=== PATIENT | female | born 1980 | race Caucasian/White ===

== ENCOUNTER 2016-07-07 12:48 | Emergency (ER) | payer MEDICARE, OTHER ==
[~2016-07-07 12:48] MED LIST: ACET50TA OR; DOCU10ELUD OR; HYDROXYZINE HCL PO; IBUP80TA OR; PERCOCET PO; PRENTAB45 PO; SERT-138 PO; SERTRALINE OR; [UNRECOGNIZED DRUG - CODE] OR
[2016-07-07] MEDS ORDERED: ONDANSETRON 4 MG ORAL DISINTEGRATING TAB (S0181) As Ordered ONE (13:32)
[2016-07-07 13:54] LABS: BASO # 0.1 K/mm3 (0.0-0.2); BASO % 0.6 % (0.0-1.0); EOS # 0.4 K/mm3 (0.0-0.50); EOS % 3.4 % (0.0-3.0); LARGE UNSTAINED CELL # 0.2 K/mm3 (0.0-0.4); LARGE UNSTAINED CELL % 2.2 % (0.0-4.0); LYMPH # 2.8 K/mm3 (1.5-4.5); LYMPH % 25.8 % (24.0-44.0); MEAN CORPUSCULAR HEMOGLOBIN 32.9 pg (27.0-33.0); MEAN CORPUSCULAR HGB CONC 35.8 g/dl (32.0-36.5); MONO # 0.4 K/mm3 (0.0-0.8); MONO % 3.6 % (0.0-5.0); NEUTROPHILS % 64.4 % (36.0-66.0); PLATELET COUNT, AUTOMATED 275 k/mm3 (150-450); RED CELL DISTRIBUTION WIDTH 11.7 % (11.5-14.5); WHITE BLOOD COUNT 10.9 K/mm3 (4.0-10.0)
[2016-07-07 14:06] LABS: ALBUMIN 4.1 GM/DL (3.2-5.2); ALBUMIN/GLOBULIN RATIO 1.14 (1.00-1.93); ALKALINE PHOSPHATASE 87 U/L (45-117); ALT/SGPT 26 U/L (12-78); ANION GAP 7 MEQ/L (8-16); AST/SGOT 13 U/L (15-37); BILIRUBIN,DIRECT < 0.1 MG/DL (0.0-0.2); BILIRUBIN,TOTAL 0.3 MG/DL (0.2-1.0); BLOOD UREA NITROGEN 18 MG/DL (7-18); CALCIUM LEVEL 8.5 MG/DL (8.5-10.1); CARBON DIOXIDE LEVEL 25 MEQ/L (21-32); CHLORIDE LEVEL 109 MEQ/L (98-107); CREATININE FOR GFR 0.78 MG/DL (0.55-1.02); GLOMERULAR FILTRATION RATE > 60.0 (>60); GLUCOSE, FASTING 100 MG/DL (70-105); SODIUM LEVEL 141 MEQ/L (136-145); TOTAL PROTEIN 7.7 GM/DL (6.4-8.2)
[2016-07-07] MEDS ORDERED: ISOVUE-370 76% 100ML VIAL (Q9967) As Ordered ONE (15:11)
--- NOTE | 2016-07-07 16:38 | REP ---
Multiphasic CT abdomen and pelvis without IV contrast and during the renal cortical phase of enhancement and again later during the renal excretion phase of enhancement after IV contrast. There is no bowel contrast. Complex right renal cyst was identified by ultrasound earlier today. There is a complex right renal cyst by CT measuring 4.6 cm containing slightly thickened multiple septa and e a few mural calcifications. The findings are compatible with a Bosniak type 2 F renal cyst. 6-month CT follow-up or MRI is recommended. There are no other calcifications on the right on the left. There is no hydronephrosis. No perinephric stranding. The visualized lung liz are unremarkable. The hepatic parenchyma, gallbladder, pancreas and spleen are normal size, homogeneous and unremarkable on all phases of the study. The adrenals are unremarkable. The right kidney is unremarkable. The the abdominal aorta is unremarkable. The bowel and mesentery are unremarkable. Pelvis: The appendix is unremarkable. The uterus, adnexa and urinary bladder are unremarkable. There is no adenopathy or ascites. There are no lytic, blastic or destructive skeletal changes. Impression: Bosniak type 2 F right renal cyst. Follow-up CT/MRI is recommended in 6 months. Signed by Fco Rios MD 07/07/2016 04:29 P
--- NOTE | 2016-07-07 17:42 | EDDOCDS ---
Physician Documentation [facility] Name: Bhargavi Sierra Age: 36 yrs Sex: Female : 1980 Arrival Date: 07/07/2016 Time: 12:48 Bed I2 / M2 Private MD: Unknown Pcp Disposition: 07/07/16 17:15 Discharged to Home/Self Care. 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 - Condition is Stable. - Discharge Instructions: Renal Mass. - Prescriptions for Guthrie 5- 325 mg Oral Tablet - take 1 tablet by ORAL route every 6 hours As needed MDD: 4 tabs; 15 tablet. - Medication Reconciliation, Local Pharmacy Hours form. - Follow up: Emergency Department; When: As needed; Reason: Worsening of conditions. Follow up: Heriberto Chambers; When: Call to arrange an appointment; Reason: Wound/Symptom Recheck, Further diagnostic work-up, Recheck today's complaints, Continuance of care, To establish care. Follow up: Yue Aviles MD; When: Call to arrange an appointment; Reason: Wound/Symptom Recheck, Further diagnostic work-up, Recheck today's complaints, Continuance of care, To establish care. - Problem is new. - Symptoms are unchanged. - Notes: THE CT TODAY SHOWS A "BOSNIAK TYPE 2 F RIGHT RENAL CYST." YOUR PAIN IS MOST LIKELY COMING FROM THIS CYST, THERE IS NOT SIGNS OF INFECTION ELSWHERE ON YOUR LABS OR URINE. THE CYST IS 4.6CM TODAY. CALL THE SLOT SUPERVISOR AND UROLOGIST GROUPS ON YOUR DISCHARGE PAPERS AND LET THEM KNOW YOU WERE HERE AND TOLD YOU HAVE THIS CYST ON YOUR KIDNEY. ANY WORSENING SYMPTOMS OF PAIN, FEVER OR ANY OTHER CONCERNING SYMPTOMS, PLEASE RETURN TO THE ER. Historical: - Allergies: no known allergies; - Home Meds: 1. prednisone 5 mg Oral tab once daily 2. hydroxyzine HCl 25 mg oral tab as needed - PMHx: Lupus; PTSD; - PSHx: right knee surgery; Tonsillectomy; - Social history: Smoking status: Patient uses tobacco products, heavy tobacco smoker. No barriers to communication noted, The patient speaks fluent Thai, Speaks appropriately for age. - Family history: Not pertinent. - : The pt / caregiver states he / she is not on anticoagulants. Home medication list is obtained from the patient. - Exposure Risk Screening:: None identified. 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 7 in. (170.18 cm) (R); Pain 2/10; 14:59 BP 121 / 67; Pulse 72; Resp 16; Temp 98.7(TE); Pulse Ox 98% on R/A; Pain 5/10; sew 16:30 BP 121 / 73; Pulse 64; Resp 18; Temp 98.0; Pulse Ox 98% ; Pain 5/10; jam1 17:32 BP 129 / 72; Pulse 68; Resp 20; Temp 97.7; Pulse Ox 98% ; Pain 5/10; jam1 12:50 Body Mass Index 35.24 (102.06 kg, 170.18 cm) gr2 MDM: 13:14 Financial registration complete. lg 13:18 [facility] [place] Agreement was scanned into [employer] and attached to record. lg 13:19 UCG by Nursing ordered. ar2 13:29 Ondansetron ODT Oral Disintegrating Tablet 4 mg PO once ordered. ar2 13:29 CBC with Diff Ordered. EDMS 13:29 MED Profile Ordered. EDMS 13:29 Liver Profile Ordered. EDMS 13:29 UA Ordered. EDMS 13:29 Urine Culture Ordered. EDMS 13:30 Renal US Ordered. EDMS 14:08 CBC with Diff Reviewed. ar2 14:08 MED Profile Reviewed. ar2 14:08 Liver Profile Reviewed. ar2 14:08 UA Reviewed. ar2 15:03 IV Saline Lock ordered. ar2 15:03 NS 0.9% 1000 ml IV at bolus once ordered. ar2 15:04 CT ABD & PELVIS: W/O FOL BY WIT+CT Ordered. EDMS Point of Care Testing: Urine : 13:27 hCG Reading: Negative; Control Reading: Positive; pml Ranges: Administered Medications: 13:33 Drug: Ondansetron ODT 4 mg [ondansetron 4 mg disintegrating tablet (1 tabs)] Route: PO; kr3 15:48 Drug: NS 0.9% 1000 ml [sodium chloride 0.9 % intravenous solution] Route: IV; Rate: dls bolus; Site: left antecubital; Signatures: Dispatcher [employer] Alesha Burris RN RN dls Oksana Omer, Reg Reg lg Edd Lau PA-C PA-C ar2 Sonam Yañez RN RN pml Laura Mathews PA-C PA-C dt4 Adan Talavera RN RN jf3 Marisa Hdz RN kr3 The chart was reviewed and I authenticate all verbal orders and agree with the evaluation and treatment provided.Attachments: 13:18 [facility] Payment Agreement lg MTDD
--- NOTE | 2016-07-07 17:42 | EDDOCDS ---
Nurse's Notes [facility] Name: Bhargavi Sierra Age: 36 yrs Sex: Female : 1980 Arrival Date: 07/07/2016 Time: 12:48 Bed I2 / M2 Private MD: Unknown Pcp Diagnosis: Other abdominal pain-RIGHT FLANK PAIN;Congenital single renal cyst-BOSNIAK TYPE 2F RENAL CYST, RIGHT Presentation: 07/07 12:53 Presenting complaint: Patient states: right sided back pain for about a month - also pml report numbness in arms and legs and nausea and vomiting also ongoing for a month. states worse today. unable to tolerate PO. Acute neurological deficits are not present. Mechanism of Injury: No Mechanism of Injury. Adult Sepsis Screening: The patient does not have new or worsening altered mentation. Patient's respiratory rate is less than 22. Systolic blood pressure is greater than 100. Patient has a qSOFA score of 0- Negative Sepsis Screen. Suicide/Homicide risk assessment- the patient denies having any suicidal and/or homicidal ideations and does not present with any other emotional, behavioral or mental health complaints. Status: Patient is not a emergency service restorer or dependent. Transition of care: patient was not received from another setting of care. 12:53 Acuity: YO Level 3 pml 12:53 Method Of Arrival: Walkin/Carried/Asstd pml Triage Assessment: 12:55 General: Appears in no apparent distress, Behavior is appropriate for age, cooperative. pml Pain: Location: posterior aspect of right lateral abdomen Pain currently is 6 out of 10 on a pain scale. HIV screening NA for this visit Offered previously. Musculoskeletal: Circulation, motion, and sensation intact. 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 prednisone 5 mg Oral tab once daily 2. hydroxyzine HCl 25 mg oral tab as needed - PMHx: Lupus; PTSD; - PSHx: right knee surgery; Tonsillectomy; - Social history: Smoking status: Patient uses tobacco products, heavy tobacco smoker. No barriers to communication noted, The patient speaks fluent German, Speaks appropriately for age. - Family history: Not pertinent. - : The pt / caregiver states he / she is not on anticoagulants. Home medication list is obtained from the patient. - Exposure Risk Screening:: None identified. Screenin:14 Screening information is obtained from the patient. Primary language is German. Fall jam1 risk: No risks identified. Assistance ADL's: requires no assistance with activities of daily living. Abuse/DV Screen: The patient / caregiver reports he/she is: not in a situation that causes fear, pain or injury. Nutritional screening: No deficits noted. Exposure Risk Screening: None identified. Advance Directives: Currently, there is no health care proxy. There is no active DNR order. There is no living will. There is no Power of Timber Killer. Advance directive information has not previously been placed in an [facility] medical record. Further advance directive information is declined. home support is adequate. Assessment: 15:38 General: Appears in no apparent distress, comfortable, Behavior is cooperative. Pain: jf3 Location: right flank Pain currently is 6 out of 10 on a pain scale. Neurological: Level of Consciousness is awake, alert, Oriented to person, place, time, pt states intermittent numbness and tingling in all extremities depending on what she is doing. Cardiovascular: Capillary refill < 3 seconds Heart tones S1 S2 present Chest pain is denied. Respiratory: Airway is patent Respiratory effort is even, unlabored, Respiratory pattern is regular, symmetrical, Breath sounds with wheezes inspiratory in left posterior upper lobe and left posterior lower lobe Denies cough, shortness of breath. GI: Abdomen is non- distended Bowel sounds present X 4 quads. Abd is soft and non tender X 4 quads. Reports nausea, vomiting, since x1 week Denies diarrhea. Derm: Skin is pink, warm & dry. 15:49 General: Pt to CT via w/c and returned IV site remains patent and clear IV bolus dls infusing well.. 16:47 General: Appears in no apparent distress, comfortable, Behavior is cooperative, Pt jf3 sitting up in chair. Respirations easy and unlabored. IV fluids running. Will continue to monitor. Vital Signs: 12:50 BP 148 / 74; Pulse 87; Resp 18 S; Temp 98.8(O); Pulse Ox 98% on R/A; Weight 102.06 kg gr2 (R); Height 5 ft. 7 in. (170.18 cm) (R); Pain 2/10; 14:59 BP 121 / 67; Pulse 72; Resp 16; Temp 98.7(TE); Pulse Ox 98% on R/A; Pain 5/10; sew 16:30 BP 121 / 73; Pulse 64; Resp 18; Temp 98.0; Pulse Ox 98% ; Pain 5/10; jam1 17:32 BP 129 / 72; Pulse 68; Resp 20; Temp 97.7; Pulse Ox 98% ; Pain 5/10; jam1 12:50 Body Mass Index 35.24 (102.06 kg, 170.18 cm) gr2 Vitals: 12:50 Log In Time: July 07, 2016 at 12:50. gr2 ED Course: 12:50 Patient visited by Kar Stock. gr2 12:50 [facility] is Private Physician. gr2 12:50 Unknown Pcp is Private Physician. gr2 12:50 Patient moved to Waiting gr2 12:51 Patient visited by Kar Stock. gr2 12:51 Patient moved to Pre RCE gr2 12:54 Triage Initiated pml 12:55 Patient visited by Sonam Yañez RN. pml 12:56 Patient moved to Triage 3 pml 13:11 Edd Lau PA-C is PHCP. ar2 13:11 Miky Whitney MD is Attending Physician. ar2 13:11 Patient visited by Edd Lau PA-C. ar2 13:18 [facility] Payment Agreement was scanned into [employer] and attached to record. lg 13:40 Patient visited by Laila Lopez. sew 13:40 Patient moved to TR2 sew 13:40 Urine Culture Sent. sew 13:40 UA Sent. sew 13:40 Liver Profile Sent. sew 13:40 MED Profile Sent. sew 13:40 CBC with Diff Sent. sew 13:40 Labs drawn. (by ED staff). Sent per order to lab. Urine collected. Clean catch sew specimen. Urine specimen sent to lab. 14:55 Patient moved to PR1 / 25 pml 15:06 Patient moved to I2 / M2 jo3 15:14 Pt greeted and oriented to ED. Patient advised of names of staff involved in care, jam1 location of call plummer, wait times and NPO status. Patient has correct armband on for positive identification. Placed in gown. Bed in low position. Call light in reach. Side rails up X 1. Door closed. 15:23 Patient visited by Alesha Roberts RN. dls 15:38 The patient / caregiver is instructed regarding the plan of care and ED course. jf3 15:38 Inserted saline lock: 20 gauge in left antecubital area The patient tolerated the jf3 procedure well. No procedures done that require assistance. 15:41 Patient visited by Adan Talavera RN. jf3 16:27 PHCP role handed off by Edd Lau PA-C dt4 16:27 Laura Mathews PA-C is PHCP. dt4 16:48 Patient visited by Adan Talavera RN. jf3 16:49 CT ABD & PELVIS: W/O FOL BY WIT+CT Returned. EDMS 17:08 Patient visited by Kelley Villalta PCA. jam1 17:14 Heriberto Chambers is Referral Physician. dt4 17:14 Yue Aviles MD is Referral Physician. dt4 17:40 Discontinued IV lock intact, bleeding controlled, pressure dressing applied, No dls redness/swelling at site. Administered Medications: 13:33 Drug: Ondansetron ODT 4 mg [ondansetron 4 mg disintegrating tablet (1 tabs)] Route: PO; kr3 15:48 Drug: NS 0.9% 1000 ml [sodium chloride 0.9 % intravenous solution] Route: IV; Rate: dls bolus; Site: left antecubital; Point of Care Testing: Urine : 13:27 hCG Reading: Negative; Control Reading: Positive; pml Ranges: Order Results: Lab Order: CBC with Diff; SPEC'M 07/07/16 13:39 Test: WHITE BLOOD COUNT; Value: 10.9; Range: 4.0-10.0; Abnormal: Above high normal; Units: K/mm3; Status: F Test: RED BLOOD COUNT; Value: 4.53; Range: 4.00-5.40; Units: M/mm3; Status: F Test: HEMOGLOBIN; Value: 14.9; Range: 12.0-16.0; Units: g/dl; Status: F Test: HEMATOCRIT; Value: 41.7; Range: 36.0-47.0; Units: %; Status: F Test: MEAN CORPUSCULAR VOLUME; Value: 92.0; Range: 80.0-96.0; Units: fl; Status: F Test: MEAN CORPUSCULAR HEMOGLOBIN; Value: 32.9; Range: 27.0-33.0; Units: pg; Status: F Test: MEAN CORPUSCULAR HGB CONC; Value: 35.8; Range: 32.0-36.5; Units: g/dl; Status: F Test: RED CELL DISTRIBUTION WIDTH; Value: 11.7; Range: 11.5-14.5; Units: %; Status: F Test: PLATELET COUNT, AUTOMATED; Value: 275; Range: 150-450; Units: k/mm3; Status: F Test: NEUTROPHILS %; Value: 64.4; Range: 36.0-66.0; Units: %; Status: F Test: LYMPH %; Value: 25.8; Range: 24.0-44.0; Units: %; Status: F Test: MONO %; Value: 3.6; Range: 0.0-5.0; Units: %; Status: F Test: EOS %; Value: 3.4; Range: 0.0-3.0; Abnormal: Above high normal; Units: %; Status: F Test: BASO %; Value: 0.6; Range: 0.0-1.0; Units: %; Status: F Test: LARGE UNSTAINED CELL %; Value: 2.2; Range: 0.0-4.0; Units: %; Status: F Test: NEUTROPHILS #; Value: 7.0; Range: 1.8-7.7; Units: K/mm3; Status: F Test: LYMPH #; Value: 2.8; Range: 1.5-4.5; Units: K/mm3; Status: F Test: MONO #; Value: 0.4; Range: 0.0-0.8; Units: K/mm3; Status: F Test: EOS #; Value: 0.4; Range: 0.0-0.50; Units: K/mm3; Status: F Test: BASO #; Value: 0.1; Range: 0.0-0.2; Units: K/mm3; Status: F Test: LARGE UNSTAINED CELL #; Value: 0.2; Range: 0.0-0.4; Units: K/mm3; Status: F Lab Order: MED Profile; SPEC'M 07/07/16 13:39 Test: GLUCOSE, FASTING; Value: 100; Range: 70-105; Units: MG/DL; Status: F Test: BLOOD UREA NITROGEN; Value: 18; Range: 7-18; Units: MG/DL; Status: F Test: CREATININE FOR GFR; Value: 0.78; Range: 0.55-1.02; Units: MG/DL; Status: F Test: GLOMERULAR FILTRATION RATE; Value: > 60.0; Range: >60; Status: F Test: SODIUM LEVEL; Value: 141; Range: 136-145; Units: MEQ/L; Status: F Test: POTASSIUM SERUM; Value: 4.0; Range: 3.5-5.1; Units: MEQ/L; Status: F Test: CHLORIDE LEVEL; Value: 109; Range: 98-107; Abnormal: Above high normal; Units: MEQ/L; Status: F Test: CARBON DIOXIDE LEVEL; Value: 25; Range: 21-32; Units: MEQ/L; Status: F Test: ANION GAP; Value: 7; Range: 8-16; Abnormal: Below low normal; Units: MEQ/L; Status: F Test: CALCIUM LEVEL; Value: 8.5; Range: 8.5-10.1; Units: MG/DL; Status: F Test Note: ; Units are mL/min/1.73 m2 Chronic Kidney Disease Staging per NKF: Stage I & II GFR >=60 Normal to Mildly Decreased Stage III GFR 30-59 Moderately Decreased Stage IV GFR 15-29 Severely Decreased Stage V GFR <15 Very Little GFR Left ESRD GFR <15 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 Lab Order: Liver Profile; SPEC'M 07/07/16 13:39 Test: AST/SGOT; Value: 13; Range: 15-37; Abnormal: Below low normal; Units: U/L; Status: F Test: ALT/SGPT; Value: 26; Range: 12-78; Units: U/L; Status: F Test: ALKALINE PHOSPHATASE; Value: 87; Range: 45-117; Units: U/L; Status: F Test: BILIRUBIN,TOTAL; Value: 0.3; Range: 0.2-1.0; Units: MG/DL; Status: F Test: BILIRUBIN,DIRECT; Value: < 0.1; Range: 0.0-0.2; Units: MG/DL; Status: F Test: TOTAL PROTEIN; Value: 7.7; Range: 6.4-8.2; Units: GM/DL; Status: F Test: ALBUMIN; Value: 4.1; Range: 3.2-5.2; Units: GM/DL; Status: F Test: ALBUMIN/GLOBULIN RATIO; Value: 1.14; Range: 1.00-1.93; Status: F Lab Order: UA; SPEC'M 07/07/16 13:39 Test: APPEARANCE, URINE; Value: CLEAR; Range: CLEAR; Status: F Test: COLOR, URINE; Value: YELLOW; Range: YELLOW; Status: F Test: PH,URINE; Value: 6.0; Range: 5.0-9.0; Units: UNITS; Status: F Test: SPECIFIC GRAVITY URINE AUTO; Value: 1.018; Range: 1.002-1.035; Status: F Test: PROTEIN, URINE AUTO; Value: NEGATIVE; Range: NEGATIVE; Units: mg/dL; Status: F Test: GLUCOSE, URINE (UA) AUTO; Value: NEGATIVE; Range: NEGATIVE; Units: mg/dL; Status: F Test: KETONE, URINE AUTO; Value: NEGATIVE; Range: NEGATIVE; Units: mg/dL; Status: F Test: UROBILINOGEN, URINE AUTO; Value: 0.2; Range: 0.0-2.0; Units: mg/dL; Status: F Test: BILIRUBIN, URINE AUTO; Value: NEGATIVE; Range: NEGATIVE; Status: F Test: NITRITE, URINE AUTO; Value: NEGATIVE; Range: NEGATIVE; Status: F Test: LEUKOCYTE ESTERASE, URINE AUTO; Value: NEGATIVE; Range: NEGATIVE; Status: F Test: BLOOD, URINE BLOOD; Value: NEGATIVE; Range: NEGATIVE; Status: F Test: WBC, URINE AUTO; Value: 1; Range: 0-3; Units: /HPF; Status: F Test: RBC, URINE AUTO; Value: 9; Range: 0-3; Abnormal: Above high normal; Units: /HPF; Status: F Test: BACTERIA, URINE AUTO; Value: NEGATIVE; Range: NEGATIVE; Status: F Test: SQUAMOUS EPITHELIAL CELL UR AU; Value: 1; Range: 0-6; Units: /HPF; Status: F Test: MUCUS, URINE; Value: SMALL; Range: NEGATIVE; Status: F Test: HYALINE CAST, URINE AUTO; Value: 0; Range: 0-1; Units: /LPF; Status: F Radiology Order: CT ABD & PELVIS: W/O FOL BY WIT+CT Test: CT ABD & PELVIS: W/O FOL BY WIT+CT REASON FOR EXAMINATION: hematuria protochol for right renal mass; Multiphasic CT abdomen and pelvis without IV contrast and during the renal; cortical phase of enhancement and again later during the renal excretion phase of; enhancement after IV contrast. There is no bowel contrast.; ; Complex right renal cyst was identified by ultrasound earlier today.; ; There is a complex right renal cyst by CT measuring 4.6 cm containing slightly; thickened multiple septa and e a few mural calcifications. The findings are; compatible with a Bosniak type 2 F renal cyst. 6-month CT follow-up or MRI is; recommended.; ; There are no other calcifications on the right on the left. There is no; hydronephrosis. No perinephric stranding.; ; The visualized lung liz are unremarkable.; ; The hepatic parenchyma, gallbladder, pancreas and spleen are normal size,; homogeneous and unremarkable on all phases of the study.; ; The adrenals are unremarkable. The right kidney is unremarkable. The the; abdominal aorta is unremarkable.; ; The bowel and mesentery are unremarkable.; ; Pelvis:; ; The appendix is unremarkable. The uterus, adnexa and urinary bladder are; unremarkable. There is no adenopathy or ascites.; ; There are no lytic, blastic or destructive skeletal changes.; ; Impression:; ; Bosniak type 2 F right renal cyst. Follow-up CT/MRI is recommended in 6 months.; ; ; Signed by; Fco Rios MD 07/07/2016 04:29 P; Outcome: 17:15 Discharge ordered by Provider. dt4 17:40 Discharge Assessment: Patient awake, alert and oriented x 3. No cognitive and/or dls functional deficits noted. Patient verbalized understanding of disposition instructions. patient administered narcotics - no. The following High Risk Discharge criteria are identified: None. Discharged to home ambulatory. Condition: stable. Discharge instructions given to patient, Instructed on discharge instructions, follow up and referral plans. medication usage, Demonstrated understanding of instructions, medications, Pt was receptive of discharge instructions/ teaching. Prescriptions given X 1. CT Study completed. Property sent home with patient. 17:41 Patient left the ED. dls Signatures: Dispatcher [facility] EDLA Alesha Roberts, RN RN dls Villalta, Kelley, COST CLERK COST CLERK jam1 Oksana Omer, Reg Reg lg Marisa Hdz,RN RN kr3 Aliyah Hernández RN RN jo3 Edd Lau, PA-C PA-C ar2 Sonam Yañez RN RN pml John, Kar Clark2 Laura Mathews, PA-C PA-C dt4 Adan Talavera RN RN jf3 MTDD
--- NOTE | 2016-07-07 20:43 | REP ---
Renal ultrasound 07/07/2016 Indication right flank pain for 1 month Comparison: Renal ultrasound 02/15/2014, abdominal ultrasound 11/30/2015 Findings: Study performed with jules scale and color Doppler ultrasound imaging. Findings: The right kidney measures 13.3 x 4.3 x 6.3 cm. Left kidney measures 12.3 x 5.1 x 6.4 cm. In the lateral mid pole right renal cortex is a 4.6 x 3.6 x 4.3 cm exophytic heterogeneous, hypoechoic mass versus complex cyst with some internal septations which are hyperechoic. This mass previously measured 3.1 2.7 x 3.5 cm diameter on 02/15/2014. There is no hydronephrosis. Cortical echogenicity is within normal limits Bladder is limited in visualization as it is contracted Impression kidneys without hydronephrosis bilaterally. Complex cystic mass noted in the lateral mid pole right kidney . Recommend CT of the abdomen and pelvis with and without IV contrast (hematuria protocol) Signed by Elsie Webber MD 07/07/2016 08:35 P
--- NOTE | 2016-07-09 18:42 | EDDOCDS ---
Physician Documentation [facility] Name: Bhargavi Sierra Age: 36 yrs Sex: Female : 1980 Arrival Date: 07/07/2016 Time: 12:48 Bed I2 / M2 Private MD: Unknown Pcp Disposition: 07/07/16 17:15 Discharged to Home/Self Care. 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 - Condition is Stable. - Discharge Instructions: Renal Mass. - Prescriptions for Pelion 5- 325 mg Oral Tablet - take 1 tablet by ORAL route every 6 hours As needed MDD: 4 tabs; 15 tablet. - Medication Reconciliation, Local Pharmacy Hours form. - Follow up: Emergency Department; When: As needed; Reason: Worsening of conditions. Follow up: Heriberto Chambers; When: Call to arrange an appointment; Reason: Wound/Symptom Recheck, Further diagnostic work-up, Recheck today's complaints, Continuance of care, To establish care. Follow up: Yue Aviles MD; When: Call to arrange an appointment; Reason: Wound/Symptom Recheck, Further diagnostic work-up, Recheck today's complaints, Continuance of care, To establish care. - Problem is new. - Symptoms are unchanged. - Notes: THE CT TODAY SHOWS A "BOSNIAK TYPE 2 F RIGHT RENAL CYST." YOUR PAIN IS MOST LIKELY COMING FROM THIS CYST, THERE IS NOT SIGNS OF INFECTION ELSWHERE ON YOUR LABS OR URINE. THE CYST IS 4.6CM TODAY. CALL THE LOGISTICS LEAD AND UROLOGIST GROUPS ON YOUR DISCHARGE PAPERS AND LET THEM KNOW YOU WERE HERE AND TOLD YOU HAVE THIS CYST ON YOUR KIDNEY. ANY WORSENING SYMPTOMS OF PAIN, FEVER OR ANY OTHER CONCERNING SYMPTOMS, PLEASE RETURN TO THE ER. Historical: - Allergies: no known allergies; - Home Meds: 1. prednisone 5 mg Oral tab once daily 2. hydroxyzine HCl 25 mg oral tab as needed - PMHx: Lupus; PTSD; - PSHx: right knee surgery; Tonsillectomy; - Social history: Smoking status: Patient uses tobacco products, heavy tobacco smoker. No barriers to communication noted, The patient speaks fluent Togolese, Speaks appropriately for age. - Family history: Not pertinent. - : The pt / caregiver states he / she is not on anticoagulants. Home medication list is obtained from the patient. - Exposure Risk Screening:: None identified. 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 7 in. (170.18 cm) (R); Pain 2/10; 14:59 BP 121 / 67; Pulse 72; Resp 16; Temp 98.7(TE); Pulse Ox 98% on R/A; Pain 5/10; sew 16:30 BP 121 / 73; Pulse 64; Resp 18; Temp 98.0; Pulse Ox 98% ; Pain 5/10; jam1 17:32 BP 129 / 72; Pulse 68; Resp 20; Temp 97.7; Pulse Ox 98% ; Pain 5/10; jam1 12:50 Body Mass Index 35.24 (102.06 kg, 170.18 cm) gr2 MDM: 13:14 Financial registration complete. lg 13:18 [facility] Payment Agreement was scanned into [employer] and attached to record. lg 13:19 UCG by Nursing ordered. ar2 13:29 Ondansetron ODT Oral Disintegrating Tablet 4 mg PO once ordered. ar2 13:29 CBC with Diff Ordered. EDMS 13:29 MED Profile Ordered. EDMS 13:29 Liver Profile Ordered. EDMS 13:29 UA Ordered. EDMS 13:29 Urine Culture Ordered. EDMS 13:30 Renal US Ordered. EDMS 14:08 CBC with Diff Reviewed. ar2 14:08 MED Profile Reviewed. ar2 14:08 Liver Profile Reviewed. ar2 14:08 UA Reviewed. ar2 15:03 IV Saline Lock ordered. ar2 15:03 NS 0.9% 1000 ml IV at bolus once ordered. ar2 15:04 CT ABD & PELVIS: W/O FOL BY WIT+CT Ordered. EDMS 07/08 11:23 T-Sheet-- Draft Copy was scanned into [employer] and attached to record. gb 11: Radiology Report was scanned into [employer] and attached to record. gb Point of Care Testing: Urine : 07/07 13:27 hCG Reading: Negative; Control Reading: Positive; pml Ranges: Administered Medications: 13:33 Drug: Ondansetron ODT 4 mg [ondansetron 4 mg disintegrating tablet (1 tabs)] Route: PO; kr3 15:48 Drug: NS 0.9% 1000 ml [sodium chloride 0.9 % intravenous solution] Route: IV; Rate: dls bolus; Site: left antecubital; Signatures: Dispatcher [employer] EDAlesha Berry RN RN dls Cat Burgos, Reg Reg gb Oksana Omer, Reg Reg lg Edd Lau PA-C PABaljeet ar2 Sonam Yañez RN RN pml Laura Mathews PABaljeet PABaljeet dt4 Adan Talavera RN RN jf3 Marisa Hdz RN kr3 The chart was reviewed and I authenticate all verbal orders and agree with the evaluation and treatment provided.Attachments: 13:18 [facility] Payment Agreement lg 07/08 11:23 T-Sheet-- Draft Copy gb Chart Complete MTDD
--- NOTE | 2016-07-09 18:42 | EDDOCDS ---
Nurse's Notes [facility] Name: Bhargavi Sierra Age: 36 yrs Sex: Female : 1980 Arrival Date: 07/07/2016 Time: 12:48 Bed I2 / M2 Private MD: Unknown Pcp Diagnosis: Other abdominal pain-RIGHT FLANK PAIN;Congenital single renal cyst-BOSNIAK TYPE 2F RENAL CYST, RIGHT Presentation: 07/07 12:53 Presenting complaint: Patient states: right sided back pain for about a month - also pml report numbness in arms and legs and nausea and vomiting also ongoing for a month. states worse today. unable to tolerate PO. Acute neurological deficits are not present. Mechanism of Injury: No Mechanism of Injury. Adult Sepsis Screening: The patient does not have new or worsening altered mentation. Patient's respiratory rate is less than 22. Systolic blood pressure is greater than 100. Patient has a qSOFA score of 0- Negative Sepsis Screen. Suicide/Homicide risk assessment- the patient denies having any suicidal and/or homicidal ideations and does not present with any other emotional, behavioral or mental health complaints. Status: Patient is not a patient service coordinator or dependent. Transition of care: patient was not received from another setting of care. 12:53 Acuity: YO Level 3 pml 12:53 Method Of Arrival: Walkin/Carried/Asstd pml Triage Assessment: 12:55 General: Appears in no apparent distress, Behavior is appropriate for age, cooperative. pml Pain: Location: posterior aspect of right lateral abdomen Pain currently is 6 out of 10 on a pain scale. HIV screening NA for this visit Offered previously. Musculoskeletal: Circulation, motion, and sensation intact. 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 prednisone 5 mg Oral tab once daily 2. hydroxyzine HCl 25 mg oral tab as needed - PMHx: Lupus; PTSD; - PSHx: right knee surgery; Tonsillectomy; - Social history: Smoking status: Patient uses tobacco products, heavy tobacco smoker. No barriers to communication noted, The patient speaks fluent Frisian, Speaks appropriately for age. - Family history: Not pertinent. - : The pt / caregiver states he / she is not on anticoagulants. Home medication list is obtained from the patient. - Exposure Risk Screening:: None identified. Screenin:14 Screening information is obtained from the patient. Primary language is Frisian. Fall jam1 risk: No risks identified. Assistance ADL's: requires no assistance with activities of daily living. Abuse/DV Screen: The patient / caregiver reports he/she is: not in a situation that causes fear, pain or injury. Nutritional screening: No deficits noted. Exposure Risk Screening: None identified. Advance Directives: Currently, there is no health care proxy. There is no active DNR order. There is no living will. There is no Power of Environmental Studies Department Chair. Advance directive information has not previously been placed in an [facility] medical record. Further advance directive information is declined. home support is adequate. Assessment: 15:38 General: Appears in no apparent distress, comfortable, Behavior is cooperative. Pain: jf3 Location: right flank Pain currently is 6 out of 10 on a pain scale. Neurological: Level of Consciousness is awake, alert, Oriented to person, place, time, pt states intermittent numbness and tingling in all extremities depending on what she is doing. Cardiovascular: Capillary refill < 3 seconds Heart tones S1 S2 present Chest pain is denied. Respiratory: Airway is patent Respiratory effort is even, unlabored, Respiratory pattern is regular, symmetrical, Breath sounds with wheezes inspiratory in left posterior upper lobe and left posterior lower lobe Denies cough, shortness of breath. GI: Abdomen is non- distended Bowel sounds present X 4 quads. Abd is soft and non tender X 4 quads. Reports nausea, vomiting, since x1 week Denies diarrhea. Derm: Skin is pink, warm & dry. 15:49 General: Pt to CT via w/c and returned IV site remains patent and clear IV bolus dls infusing well.. 16:47 General: Appears in no apparent distress, comfortable, Behavior is cooperative, Pt jf3 sitting up in chair. Respirations easy and unlabored. IV fluids running. Will continue to monitor. Vital Signs: 12:50 BP 148 / 74; Pulse 87; Resp 18 S; Temp 98.8(O); Pulse Ox 98% on R/A; Weight 102.06 kg gr2 (R); Height 5 ft. 7 in. (170.18 cm) (R); Pain 2/10; 14:59 BP 121 / 67; Pulse 72; Resp 16; Temp 98.7(TE); Pulse Ox 98% on R/A; Pain 5/10; sew 16:30 BP 121 / 73; Pulse 64; Resp 18; Temp 98.0; Pulse Ox 98% ; Pain 5/10; jam1 17:32 BP 129 / 72; Pulse 68; Resp 20; Temp 97.7; Pulse Ox 98% ; Pain 5/10; jam1 12:50 Body Mass Index 35.24 (102.06 kg, 170.18 cm) gr2 Vitals: 12:50 Log In Time: July 07, 2016 at 12:50. gr2 ED Course: 12:50 Patient visited by Kar Stock. gr2 12:50 [place] [place] Physician. gr2 12:50 Unknown Pcp is Private Physician. gr2 12:50 Patient moved to Waiting gr2 12:51 Patient visited by Kar Stock. gr2 12:51 Patient moved to Pre RCE gr2 12:54 Triage Initiated pml 12:55 Patient visited by Sonam Yañez RN. pml 12:56 Patient moved to Triage 3 pml 13:11 Edd Lau PA-C is PHCP. ar2 13:11 Miky Whitney MD is Attending Physician. ar2 13:11 Patient visited by Edd Lau PA-C. ar2 13:18 [facility] Payment Agreement was scanned into [employer]™ and attached to record. lg 13:40 Patient visited by Laila Lopez. sew 13:40 Patient moved to TR2 sew 13:40 Urine Culture Sent. sew 13:40 UA Sent. sew 13:40 Liver Profile Sent. sew 13:40 MED Profile Sent. sew 13:40 CBC with Diff Sent. sew 13:40 Labs drawn. (by ED staff). Sent per order to lab. Urine collected. Clean catch sew specimen. Urine specimen sent to lab. 14:55 Patient moved to PR1 / 25 pml 15:06 Patient moved to I2 / M2 jo3 15:14 Pt greeted and oriented to ED. Patient advised of names of staff involved in care, jam1 location of call plummer, wait times and NPO status. Patient has correct armband on for positive identification. Placed in gown. Bed in low position. Call light in reach. Side rails up X 1. Door closed. 15:23 Patient visited by Alesha Roberts RN. dls 15:38 The patient / caregiver is instructed regarding the plan of care and ED course. jf3 15:38 Inserted saline lock: 20 gauge in left antecubital area The patient tolerated the jf3 procedure well. No procedures done that require assistance. 15:41 Patient visited by Adan Talavera RN. jf3 16:27 PHCP role handed off by Edd Lau PA-C dt4 16:27 Laura Mathews PA-C is PHCP. dt4 16:48 Patient visited by Adan Talavera RN. jf3 16:49 CT ABD & PELVIS: W/O FOL BY WIT+CT Returned. EDMS 17:08 Patient visited by Kelley Villalta, RADHA. jam1 17:14 Heriberto Chambers is Referral Physician. dt4 17:14 Yue Aviles MD is Referral Physician. dt4 17:40 Discontinued IV lock intact, bleeding controlled, pressure dressing applied, No dls redness/swelling at site. 20:58 Renal US Returned. EDMS 07/08 11:23 T-Sheet-- Draft Copy was scanned into [employer]™ and attached to record. gb 11:23 Radiology Report was scanned into [employer]™ and attached to record. gb Administered Medications: 07/07 13:33 Drug: Ondansetron ODT 4 mg [ondansetron 4 mg disintegrating tablet (1 tabs)] Route: PO; kr3 15:48 Drug: NS 0.9% 1000 ml [sodium chloride 0.9 % intravenous solution] Route: IV; Rate: dls bolus; Site: left antecubital; Point of Care Testing: Urine : 13:27 hCG Reading: Negative; Control Reading: Positive; pml Ranges: Order Results: Lab Order: CBC with Diff; SPEC'M 07/07/16 13:39 Test: WHITE BLOOD COUNT; Value: 10.9; Range: 4.0-10.0; Abnormal: Above high normal; Units: K/mm3; Status: F Test: RED BLOOD COUNT; Value: 4.53; Range: 4.00-5.40; Units: M/mm3; Status: F Test: HEMOGLOBIN; Value: 14.9; Range: 12.0-16.0; Units: g/dl; Status: F Test: HEMATOCRIT; Value: 41.7; Range: 36.0-47.0; Units: %; Status: F Test: MEAN CORPUSCULAR VOLUME; Value: 92.0; Range: 80.0-96.0; Units: fl; Status: F Test: MEAN CORPUSCULAR HEMOGLOBIN; Value: 32.9; Range: 27.0-33.0; Units: pg; Status: F Test: MEAN CORPUSCULAR HGB CONC; Value: 35.8; Range: 32.0-36.5; Units: g/dl; Status: F Test: RED CELL DISTRIBUTION WIDTH; Value: 11.7; Range: 11.5-14.5; Units: %; Status: F Test: PLATELET COUNT, AUTOMATED; Value: 275; Range: 150-450; Units: k/mm3; Status: F Test: NEUTROPHILS %; Value: 64.4; Range: 36.0-66.0; Units: %; Status: F Test: LYMPH %; Value: 25.8; Range: 24.0-44.0; Units: %; Status: F Test: MONO %; Value: 3.6; Range: 0.0-5.0; Units: %; Status: F Test: EOS %; Value: 3.4; Range: 0.0-3.0; Abnormal: Above high normal; Units: %; Status: F Test: BASO %; Value: 0.6; Range: 0.0-1.0; Units: %; Status: F Test: LARGE UNSTAINED CELL %; Value: 2.2; Range: 0.0-4.0; Units: %; Status: F Test: NEUTROPHILS #; Value: 7.0; Range: 1.8-7.7; Units: K/mm3; Status: F Test: LYMPH #; Value: 2.8; Range: 1.5-4.5; Units: K/mm3; Status: F Test: MONO #; Value: 0.4; Range: 0.0-0.8; Units: K/mm3; Status: F Test: EOS #; Value: 0.4; Range: 0.0-0.50; Units: K/mm3; Status: F Test: BASO #; Value: 0.1; Range: 0.0-0.2; Units: K/mm3; Status: F Test: LARGE UNSTAINED CELL #; Value: 0.2; Range: 0.0-0.4; Units: K/mm3; Status: F Lab Order: MED Profile; SPEC07/07/16 13:39 Test: GLUCOSE, FASTING; Value: 100; Range: 70-105; Units: MG/DL; Status: F Test: BLOOD UREA NITROGEN; Value: 18; Range: 7-18; Units: MG/DL; Status: F Test: CREATININE FOR GFR; Value: 0.78; Range: 0.55-1.02; Units: MG/DL; Status: F Test: GLOMERULAR FILTRATION RATE; Value: > 60.0; Range: >60; Status: F Test: SODIUM LEVEL; Value: 141; Range: 136-145; Units: MEQ/L; Status: F Test: POTASSIUM SERUM; Value: 4.0; Range: 3.5-5.1; Units: MEQ/L; Status: F Test: CHLORIDE LEVEL; Value: 109; Range: 98-107; Abnormal: Above high normal; Units: MEQ/L; Status: F Test: CARBON DIOXIDE LEVEL; Value: 25; Range: 21-32; Units: MEQ/L; Status: F Test: ANION GAP; Value: 7; Range: 8-16; Abnormal: Below low normal; Units: MEQ/L; Status: F Test: CALCIUM LEVEL; Value: 8.5; Range: 8.5-10.1; Units: MG/DL; Status: F Test Note: ; Units are mL/min/1.73 m2 Chronic Kidney Disease Staging per NKF: Stage I & II GFR >=60 Normal to Mildly Decreased Stage III GFR 30-59 Moderately Decreased Stage IV GFR 15-29 Severely Decreased Stage V GFR <15 Very Little GFR Left ESRD GFR <15 on COUNT TEAM CLERK Lab Order: Liver Profile; SPEC'M 07/07/16 13:39 Test: AST/SGOT; Value: 13; Range: 15-37; Abnormal: Below low normal; Units: U/L; Status: F Test: ALT/SGPT; Value: 26; Range: 12-78; Units: U/L; Status: F Test: ALKALINE PHOSPHATASE; Value: 87; Range: 45-117; Units: U/L; Status: F Test: BILIRUBIN,TOTAL; Value: 0.3; Range: 0.2-1.0; Units: MG/DL; Status: F Test: BILIRUBIN,DIRECT; Value: < 0.1; Range: 0.0-0.2; Units: MG/DL; Status: F Test: TOTAL PROTEIN; Value: 7.7; Range: 6.4-8.2; Units: GM/DL; Status: F Test: ALBUMIN; Value: 4.1; Range: 3.2-5.2; Units: GM/DL; Status: F Test: ALBUMIN/GLOBULIN RATIO; Value: 1.14; Range: 1.00-1.93; Status: F Lab Order: UA; SPEC'M 07/07/16 13:39 Test: APPEARANCE, URINE; Value: CLEAR; Range: CLEAR; Status: F Test: COLOR, URINE; Value: YELLOW; Range: YELLOW; Status: F Test: PH,URINE; Value: 6.0; Range: 5.0-9.0; Units: UNITS; Status: F Test: SPECIFIC GRAVITY URINE AUTO; Value: 1.018; Range: 1.002-1.035; Status: F Test: PROTEIN, URINE AUTO; Value: NEGATIVE; Range: NEGATIVE; Units: mg/dL; Status: F Test: GLUCOSE, URINE (UA) AUTO; Value: NEGATIVE; Range: NEGATIVE; Units: mg/dL; Status: F Test: KETONE, URINE AUTO; Value: NEGATIVE; Range: NEGATIVE; Units: mg/dL; Status: F Test: UROBILINOGEN, URINE AUTO; Value: 0.2; Range: 0.0-2.0; Units: mg/dL; Status: F Test: BILIRUBIN, URINE AUTO; Value: NEGATIVE; Range: NEGATIVE; Status: F Test: NITRITE, URINE AUTO; Value: NEGATIVE; Range: NEGATIVE; Status: F Test: LEUKOCYTE ESTERASE, URINE AUTO; Value: NEGATIVE; Range: NEGATIVE; Status: F Test: BLOOD, URINE BLOOD; Value: NEGATIVE; Range: NEGATIVE; Status: F Test: WBC, URINE AUTO; Value: 1; Range: 0-3; Units: /HPF; Status: F Test: RBC, URINE AUTO; Value: 9; Range: 0-3; Abnormal: Above high normal; Units: /HPF; Status: F Test: BACTERIA, URINE AUTO; Value: NEGATIVE; Range: NEGATIVE; Status: F Test: SQUAMOUS EPITHELIAL CELL UR AU; Value: 1; Range: 0-6; Units: /HPF; Status: F Test: MUCUS, URINE; Value: SMALL; Range: NEGATIVE; Status: F Test: HYALINE CAST, URINE AUTO; Value: 0; Range: 0-1; Units: /LPF; Status: F Lab Order: Urine Culture; SPEC'M 07/07/16 13:39 Test: URINE CULTURE; Value: URINE CULTURE RESULT; Status: F Test: URINE CULTURE; Value: NO GROWTH CLINICAL SIGNIFICANCE 2 OR MORE ORGANISMS; Status: F Radiology Order: Renal US Test: Renal US REASON FOR EXAMINATION: right flank pain for 1 month; Renal ultrasound 07/07/2016; ; Indication right flank pain for 1 month; ; Comparison: Renal ultrasound 02/15/2014, abdominal ultrasound 11/30/2015; ; Findings: Study performed with jules scale and color Doppler ultrasound imaging.; ; Findings: The right kidney measures 13.3 x 4.3 x 6.3 cm. Left kidney measures; 12.3 x 5.1 x 6.4 cm. In the lateral mid pole right renal cortex is a 4.6 x 3.6; x 4.3 cm exophytic heterogeneous, hypoechoic mass versus complex cyst with some; internal septations which are hyperechoic. This mass previously measured 3.1; 2.7 x 3.5 cm diameter on 02/15/2014.; ; There is no hydronephrosis. Cortical echogenicity is within normal limits; ; Bladder is limited in visualization as it is contracted; ; Impression kidneys without hydronephrosis bilaterally. Complex cystic mass noted; in the lateral mid pole right kidney . Recommend CT of the abdomen and pelvis; with and without IV contrast (hematuria protocol); ; ; ; ; Signed by; Elsie Webber MD 07/07/2016 08:35 P; Radiology Order: CT ABD & PELVIS: W/O FOL BY WIT+CT Test: CT ABD & PELVIS: W/O FOL BY WIT+CT REASON FOR EXAMINATION: hematuria protochol for right renal mass; Multiphasic CT abdomen and pelvis without IV contrast and during the renal; cortical phase of enhancement and again later during the renal excretion phase of; enhancement after IV contrast. There is no bowel contrast.; ; Complex right renal cyst was identified by ultrasound earlier today.; ; There is a complex right renal cyst by CT measuring 4.6 cm containing slightly; thickened multiple septa and e a few mural calcifications. The findings are; compatible with a Bosniak type 2 F renal cyst. 6-month CT follow-up or MRI is; recommended.; ; There are no other calcifications on the right on the left. There is no; hydronephrosis. No perinephric stranding.; ; The visualized lung liz are unremarkable.; ; The hepatic parenchyma, gallbladder, pancreas and spleen are normal size,; homogeneous and unremarkable on all phases of the study.; ; The adrenals are unremarkable. The right kidney is unremarkable. The the; abdominal aorta is unremarkable.; ; The bowel and mesentery are unremarkable.; ; Pelvis:; ; The appendix is unremarkable. The uterus, adnexa and urinary bladder are; unremarkable. There is no adenopathy or ascites.; ; There are no lytic, blastic or destructive skeletal changes.; ; Impression:; ; Bosniak type 2 F right renal cyst. Follow-up CT/MRI is recommended in 6 months.; ; ; Signed by; Fco Rios MD 07/07/2016 04:29 P; Outcome: 17:15 Discharge ordered by Provider. dt4 17:40 Discharge Assessment: Patient awake, alert and oriented x 3. No cognitive and/or dls functional deficits noted. Patient verbalized understanding of disposition instructions. patient administered narcotics - no. The following High Risk Discharge criteria are identified: None. Discharged to home ambulatory. Condition: stable. Discharge instructions given to patient, Instructed on discharge instructions, follow up and referral plans. medication usage, Demonstrated understanding of instructions, medications, Pt was receptive of discharge instructions/ teaching. Prescriptions given X 1. CT Study completed. Property sent home with patient. 17:41 Patient left the ED. dls Signatures: Dispatcher [employer] EDMS Alesha Roberts RN RN dls Kelley Villalta, NURSING ADMINISTRATOR NURSING ADMINISTRATOR jam1 Cat Burgos, Reg Reg gb Oksana Omer, Reg Reg lg Marisa Hdz RN RN [id number] Aliyah Hernández RN RN [id number] Edd Lau, PA-C PA-C ar2 Sonam Yañez RN RN Laila Biggs Gainslee gr2 Laura Mathews, PA-C PA-C dt4 Farman,Adan,RN RN jf3 Chart Complete MTDD
--- NOTE | 2016-07-09 18:42 | EDDOCDS ---
Physician Documentation [facility] Name: Bhargavi Sierra Age: 36 yrs Sex: Female : 1980 Arrival Date: 07/07/2016 Time: 12:48 Bed I2 / M2 Private MD: Unknown Pcp Disposition: 07/07/16 17:15 Discharged to Home/Self Care. 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 - Condition is Stable. - Discharge Instructions: Renal Mass. - Prescriptions for Lavonia 5- 325 mg Oral Tablet - take 1 tablet by ORAL route every 6 hours As needed MDD: 4 tabs; 15 tablet. - Medication Reconciliation, Local Pharmacy Hours form. - Follow up: Emergency Department; When: As needed; Reason: Worsening of conditions. Follow up: Heriberto Chambers; When: Call to arrange an appointment; Reason: Wound/Symptom Recheck, Further diagnostic work-up, Recheck today's complaints, Continuance of care, To establish care. Follow up: Yue Aviles MD; When: Call to arrange an appointment; Reason: Wound/Symptom Recheck, Further diagnostic work-up, Recheck today's complaints, Continuance of care, To establish care. - Problem is new. - Symptoms are unchanged. - Notes: THE CT TODAY SHOWS A "BOSNIAK TYPE 2 F RIGHT RENAL CYST." YOUR PAIN IS MOST LIKELY COMING FROM THIS CYST, THERE IS NOT SIGNS OF INFECTION ELSWHERE ON YOUR LABS OR URINE. THE CYST IS 4.6CM TODAY. CALL THE [facility] ADJUSTER AND UROLOGIST GROUPS ON YOUR DISCHARGE PAPERS AND LET THEM KNOW YOU WERE HERE AND TOLD YOU HAVE THIS CYST ON YOUR KIDNEY. ANY WORSENING SYMPTOMS OF PAIN, FEVER OR ANY OTHER CONCERNING SYMPTOMS, PLEASE RETURN TO THE ER. Historical: - Allergies: no known allergies; - Home Meds: 1. prednisone 5 mg Oral tab once daily 2. hydroxyzine HCl 25 mg oral tab as needed - PMHx: Lupus; PTSD; - PSHx: right knee surgery; Tonsillectomy; - Social history: Smoking status: Patient uses tobacco products, heavy tobacco smoker. No barriers to communication noted, The patient speaks fluent [place]ijani, Speaks appropriately for age. - Family history: Not pertinent. - : The pt / caregiver states he / she is not on anticoagulants. Home medication list is obtained from the patient. - Exposure Risk Screening:: None identified. ARCHIVES SPECIALIST: 07/07 12:55 LMP 06/16/2015 pml Vital Signs: 12:50 BP 148 / 74; Pulse 87; Resp 18 S; Temp 98.8(O); Pulse Ox 98% on R/A; Weight 102.06 kg / gr2 225 lbs (R); Height 5 ft. 7 in. (170.18 cm) (R); Pain 2/10; 14:59 BP 121 / 67; Pulse 72; Resp 16; Temp 98.7(TE); Pulse Ox 98% on R/A; Pain 5/10; sew 16:30 BP 121 / 73; Pulse 64; Resp 18; Temp 98.0; Pulse Ox 98% ; Pain 5/10; jam1 17:32 BP 129 / 72; Pulse 68; Resp 20; Temp 97.7; Pulse Ox 98% ; Pain 5/10; jam1 12:50 Body Mass Index 35.24 (102.06 kg, 170.18 cm) gr2 MDM: 13:14 Financial registration complete. lg 13:18 [facility] Payment Agreement was scanned into [employer] and attached to record. lg 13:19 UCG by Nursing ordered. ar2 13:29 Ondansetron ODT Oral Disintegrating Tablet 4 mg PO once ordered. ar2 13:29 CBC with Diff Ordered. EDMS 13:29 MED Profile Ordered. EDMS 13:29 Liver Profile Ordered. EDMS 13:29 UA Ordered. EDMS 13:29 Urine Culture Ordered. EDMS 13:30 Renal US Ordered. EDMS 14:08 CBC with Diff Reviewed. ar2 14:08 MED Profile Reviewed. ar2 14:08 Liver Profile Reviewed. ar2 14:08 UA Reviewed. ar2 15:03 IV Saline Lock ordered. ar2 15:03 NS 0.9% 1000 ml IV at bolus once ordered. ar2 15:04 CT ABD & PELVIS: W/O FOL BY WIT+CT Ordered. EDMS 07/08 11:23 T-Sheet-- Draft Copy was scanned into [employer] and attached to record. gb 11: Radiology Report was scanned into [employer] and attached to record. gb Point of Care Testing: Urine : 07/07 13:27 hCG Reading: Negative; Control Reading: Positive; pml Ranges: Administered Medications: 13:33 Drug: Ondansetron ODT 4 mg [ondansetron 4 mg disintegrating tablet (1 tabs)] Route: PO; kr3 15:48 Drug: NS 0.9% 1000 ml [sodium chloride 0.9 % intravenous solution] Route: IV; Rate: dls bolus; Site: left antecubital; Signatures: Dispatcher [employer] EDAlesha Berry RN RN dls Cat Burgos, Reg Reg gb Oksana Omer, Reg Reg lg Edd Lau PA-C PABaljeet ar2 Sonam Yañez RN RN pml Laura Mathews PABaljeet PABaljeet dt4 Adan Talavera RN RN jf3 Marisa Hdz RN kr3 The chart was reviewed and I authenticate all verbal orders and agree with the evaluation and treatment provided.Attachments: 13:18 [facility] Payment Agreement lg 07/08 11:23 T-Sheet-- Draft Copy gb Chart Complete MTDD
== END 2016-07-07 17:41 | disposition home or self-care (01) ==
LOC: M ED 12:48
DX: N28.1 Cyst of kidney, acquired (principal); D68.62 Lupus anticoagulant syndrome; F43.10 Post-traumatic stress disorder, unspecified; Z79.52 Long term (current) use of systemic steroids; F17.210 Nicotine dependence, cigarettes, uncomplicated
CPT/HCPCS: 36415; 74178; 76775; 80048; 80076; 81001; 81025; 85025; 87086; 99284; Q9967

== ENCOUNTER → 2016-07-16 | Outpatient (REF) | payer MEDICARE, OTHER | LOC: M SFHCLERA 20:40 | PROVIDERS: ATTEND Nurse Practitioner Family | DX: R50.9 Fever, unspecified (principal) ==

== ENCOUNTER → 2016-08-20 | Outpatient (CLI) | payer MEDICARE, OTHER ==
[~2016-08-20] MED LIST changes: +GASTROGRAFIN SOLUTION 30ML (Q9963) As Ordered ONE; +ISOVUE-370 76% 100ML VIAL (Q9967) As Ordered ONE
--- NOTE | 2016-08-20 15:02 | REP ---
CT study of the of the abdomen and pelvis without and with IV contrast: With oral contrast. History: Neoplasm of the right kidney uncertain behavior. Comparison CT study is from July 07, 2016. Comparison sonography is from February 15, 2014. CT contrast dose: 100 mL of Isovue [address] findings: Digital preliminary port captain radiograph is normal. The lung bases show no abnormality. The liver and spleen remain normal in size, homogeneous in texture. No adrenal lesion is seen on either side. Pancreas and gallbladder are unremarkable. No retroperitoneal mass or adenopathy is seen. Again noted is a complex cystic lesion in the right mid kidney. This measures 4.1 x 4.4 x 4.3 cm. It is felt to be unchanged in size. There are two foci of mural calcification again noted and somewhat thickened internal septations are seen. No contrast enhancement is visible. The lesion is sharply circumscribed. It is again felt to be compatible with a Bosniak category II F complex cystic lesion. I note that sonography from February 2014 showed a fairly echogenic lesion, its dimensions are larger on the recent CT studies than they were sonographically. A normal appendix is seen. No uterine or ovarian abnormality is seen. No abdominal wall defect is noted. Small and large intestinal bowel loops are normal. No retroperitoneal mass or adenopathy is seen. No other renal lesion is observed. Impression: 4.3 x 4.4 x 4.1 cm Bosniak category II F cystic lesion right mid kidney unchanged from the most recent prior study of July 07, 2016. Its dimensions are somewhat larger than on the February 15, 2014 prior sonogram. 6-month follow-up CT study suggested. Signed by Get Rodríguez MD 08/20/2016 03:22 P
== END ==
LOC: M RAD 11:30
PROVIDERS: ATTEND Internal Medicine Nephrology
DX: D41.01 Neoplasm of uncertain behavior of right kidney (principal)
CPT/HCPCS: 74178; Q9963; Q9967

== ENCOUNTER → 2016-10-16 | Outpatient (CLI) | payer MEDICARE, OTHER ==
[~2016-10-16] MED LIST changes: -GASTROGRAFIN SOLUTION 30ML (Q9963) As Ordered ONE; -ISOVUE-370 76% 100ML VIAL (Q9967) As Ordered ONE
[2016-10-16 11:13] LABS: BASO # 0.1 K/mm3 (0.0-0.2); BASO % 0.6 % (0.0-1.0); EOS # 0.2 K/mm3 (0.0-0.50); EOS % 2.4 % (0.0-3.0); LARGE UNSTAINED CELL # 0.2 K/mm3 (0.0-0.4); LARGE UNSTAINED CELL % 2.3 % (0.0-4.0); LYMPH # 2.6 K/mm3 (1.5-4.5); MEAN CORPUSCULAR HEMOGLOBIN 32.6 pg (27.0-33.0); MEAN CORPUSCULAR HGB CONC 34.4 g/dl (32.0-36.5); MEAN CORPUSCULAR VOLUME 94.8 fl (80.0-96.0); MONO # 0.4 K/mm3 (0.0-0.8); MONO % 4.7 % (0.0-5.0); NEUTROPHILS # 5.5 K/mm3 (1.8-7.7); PLATELET COUNT, AUTOMATED 263 k/mm3 (150-450)
[2016-10-16 11:31] LABS: ALBUMIN 4.2 GM/DL (3.2-5.2); ANION GAP 7 MEQ/L (8-16); BLOOD UREA NITROGEN 15 MG/DL (7-18); CALCIUM LEVEL 9.1 MG/DL (8.5-10.1); CARBON DIOXIDE LEVEL 27 MEQ/L (21-32); CHLORIDE LEVEL 105 MEQ/L (98-107); CREATININE FOR GFR 0.73 MG/DL (0.55-1.02); GLOMERULAR FILTRATION RATE > 60.0 (>60); PHOSPHORUS LEVEL 3.3 MG/DL (2.5-4.9); POTASSIUM SERUM 4.5 MEQ/L (3.5-5.1); SODIUM LEVEL 139 MEQ/L (136-145)
[2016-10-17 10:53] LABS: GLUCOSE, FASTING 92 MG/DL (70-105); WHITE BLOOD COUNT 8.7 K/mm3 (4.0-10.0)
== END ==
LOC: M LAB 10:17
PROVIDERS: ATTEND Internal Medicine Nephrology
DX: D41.01 Neoplasm of uncertain behavior of right kidney (principal); D64.9 Anemia, unspecified

== ENCOUNTER → 2016-10-23 | Outpatient (REF) | payer MEDICARE, OTHER | LOC: M SMT 17:09 | PROVIDERS: ATTEND Nurse Practitioner Family | DX: Q61.00 Congenital renal cyst, unspecified (principal); R31.9 Hematuria, unspecified | CPT/HCPCS: 81001; 87086; 88108; G0463 ==

== ENCOUNTER → 2016-11-06 | Outpatient (CLI) | payer MEDICARE, OTHER ==
[~2016-11-06] MED LIST changes: +ISOVUE-300 61% 50ML VIAL (Q9967) As Ordered ONE; +LIDOCAINE 2% MDV 20 ML VIAL As Ordered ONE; +LIDOCAINE W/EPINEPHRINE 1% 20ML VIAL As Ordered ONE; +NORCO, ANEXSIA 5/325MG TABLET (HYDROcodone/ACETAMINOPHEN) As Ordered ONE; +SODIUM BICARBONATE 4 % INJ 2.4MEQ 5 ML VIAL (THIS HAS A PRESERVATIVE) As Ordered ONE; +fentaNYL 100 MCG/2 ML INJECTION (J3010) As Ordered ONE
[2016-11-06 15:35] LABS: SOURCE, BODY FLUID CREATININE OTHER
--- NOTE | 2016-11-06 19:09 | REPKIM ---
CLINICAL HISTORY: Complex enlarging renal cystic lesion on the right. The referring urology service has asked a diagnostic renal cystic lesion aspiration and biopsy. PROCEDURE PERFORMED: 1. Ultrasound of the right kidney 2. Complex renal cystic lesion aspiration and biopsy 3. Sinogram INTERVENTIONALIST: Kristie Jones MD CONSENT: The risks, benefits and alternatives to the procedure were explained to the patient and informed written consent was obtained. MEDICATIONS: Local Lidocaine CONTRAST: 10 mL Isovue 300 EBL: less than 5 mL FLUORO TIME: 3.2 minutes PROCEDURE: The patient was brought to the interventional radiology suite where a timeout procedure was performed. The patient was placed with the right side up. The right flank was prepped and draped in a sterile fashion. Ultrasound showed a 3.5 x 3.4 cm complex cyst containing multiple septations involving the lateral mid portion of the right kidney. Local anesthetic was established using Lidocaine. Using ultrasound guidance, a 19 gauge introducer needle was introduced into the right renal cystic lesion, after infiltration of the skin and deep tissues with local anesthetic. Using coaxial technique, three passes were made in the target septations using a 20-gague biopsy device. Also approximately 10 mL of blood tinged fluid was aspirated. The fluid sample sent for laboratory analysis/pathology. Following this, contrast was injected via the introducer needle and DSA images were obtained. This showed filling of the adjacent calyx on delayed images. The cavity was aspirated. The introducer needle was removed. A sterile dressing was applied. The patient tolerated the procedure well with no immediate complications. This procedure was performed using ultrasound. Dr. Jones was present. IMPRESSION: Successful diagnostic aspiration/biopsy of the complex right renal cystic lesion as discussed above. A sample of the fluid sent for laboratory analysis including c/s, cytology and creatinine level. Sinogram demonstrates filling of the adjacent calyx/collecting system on delayed images. cc: MD Erma Panda, MD RAUL Grace
== END | disposition home or self-care (01) ==
LOC: M IRPRO 12:22
PROVIDERS: ATTEND Nurse Practitioner Family
DX: N28.1 Cyst of kidney, acquired (principal)
CPT/HCPCS: 50200; 50390; 74470; 82570; 87070; 87075; 87205; 88305; J3010; Q9967

== ENCOUNTER → 2017-05-14 | Outpatient (REF) ==
[~2017-05-14] MED LIST changes: -ISOVUE-300 61% 50ML VIAL (Q9967) As Ordered ONE; -LIDOCAINE 2% MDV 20 ML VIAL As Ordered ONE; -LIDOCAINE W/EPINEPHRINE 1% 20ML VIAL As Ordered ONE; +MULT1TAB18 PO; -NORCO, ANEXSIA 5/325MG TABLET (HYDROcodone/ACETAMINOPHEN) As Ordered ONE; +PRED20TA PO; -SODIUM BICARBONATE 4 % INJ 2.4MEQ 5 ML VIAL (THIS HAS A PRESERVATIVE) As Ordered ONE; +ZITHTAB PO; -fentaNYL 100 MCG/2 ML INJECTION (J3010) As Ordered ONE
--- NOTE | 2017-05-14 13:25 | REP ---
Clinical: Pain and disability. Technique: AP, lateral and coned-down views of the lumbosacral spine. Findings: Alignment maintained. Moderate degenerative changes are appreciated at the L3-4 through L5-S1 levels with endplate sclerosis, marginal spurring, and disc space narrowing. No acute fracture / compression injury or subluxation. Impression: Moderate degenerative changes to the lower lumbar spine. Signed by Be Galvan MD 05/14/2017 01:16 P
== END ==
LOC: M SMT 12:55
PROVIDERS: ATTEND Internal Medicine
DX: Z02.71 Encounter for disability determination (principal)

== ENCOUNTER 2017-05-20 10:24 | Emergency (ER) | payer MEDICARE, OTHER ==
[~2017-05-20] VITALS: Ht 170.2 cm; Wt 110.0 kg
[~2017-05-20 10:24] MED LIST changes: -MULT1TAB18 PO; -PRED20TA PO; -ZITHTAB PO
[2017-05-20 10:25] VITALS: BP 137/79
[2017-05-20] MEDS ORDERED: MULT1TAB18 PO (10:38)
[2017-05-20] MEDS ORDERED: ZITHTAB PO (11:30)
[2017-05-20] MEDS ORDERED: PRED20TA PO (11:30)
== END 2017-05-20 11:46 | disposition home or self-care (01) ==
LOC: M ED 10:24
DX: J45.901 Unspecified asthma with (acute) exacerbation (principal); J01.90 Acute sinusitis, unspecified; F41.9 Anxiety disorder, unspecified; F17.210 Nicotine dependence, cigarettes, uncomplicated

== ENCOUNTER 2017-08-15 13:31 | Emergency (ER) | payer MEDICARE, OTHER ==
[2017-08-15] MEDS: IBUPROFEN 800 MG TAB PO (15:18)
== END 2017-08-15 16:06 | disposition home or self-care (01) ==
LOC: M ED 13:31
DX: R07.89 Other chest pain (principal); R05 Cough; F17.210 Nicotine dependence, cigarettes, uncomplicated; J45.909 Unspecified asthma, uncomplicated; F41.9 Anxiety disorder, unspecified; F33.9 Major depressive disorder, recurrent, unspecified; F43.10 Post-traumatic stress disorder, unspecified; Z79.899 Other long term (current) drug therapy; Z98.890 Other specified postprocedural states
CPT/HCPCS: 71101

== ENCOUNTER → 2018-01-15 | Outpatient (CLI) | payer OTHER | LOC: M RAD 10:32 | DX: N63.21 Unspecified lump in the left breast, upper outer quadrant (principal); N60.32 Fibrosclerosis of left breast | CPT/HCPCS: 77066 ==

== ENCOUNTER 2018-08-03 16:44 | Emergency (ER) | payer MEDICARE, OTHER ==
[~2018-08-03] VITALS: Ht 170.2 cm; Wt 112.3 kg
[~2018-08-03 16:44] MED LIST changes: +ACET30TAB PO; +MULT1TAB18 PO; +PRED20TA PO; +ZITHTAB PO
[2018-08-03 19:30] LABS: INFLUENZA A AMPLIFICATION NEGATIVE (NEGATIVE); INFLUENZA B AMPLIFICATION NEGATIVE (NEGATIVE)
[2018-08-03 19:53] VITALS: BP 145/90
[2018-08-03] MEDS ORDERED: MUCI600T37 PO (20:10)
[2018-08-03] MEDS ORDERED: BENZ200C70 PO (20:10)
[2018-08-03] MEDS ORDERED: AFRI0.0511 (20:10)
== END 2018-08-03 20:26 | disposition home or self-care (01) ==
LOC: M ED 16:44
DX: J06.9 Acute upper respiratory infection, unspecified (principal); J20.8 Acute bronchitis due to other specified organisms; J45.909 Unspecified asthma, uncomplicated; F41.9 Anxiety disorder, unspecified; F32.9 Major depressive disorder, single episode, unspecified; F43.10 Post-traumatic stress disorder, unspecified; F17.200 Nicotine dependence, unspecified, uncomplicated; Z79.899 Other long term (current) drug therapy

== ENCOUNTER → 2019-01-15 | Outpatient (CLI) | payer MEDICARE, OTHER ==
[~2019-01-15] MED LIST changes: +ACET-716 PO; -ACET30TAB PO; -ACET50TA OR; +AFRI0.0511; +BENZ200C70 PO; -DOCU10ELUD OR; +DOCU5LIQ OR; +MAPA500T17 OR; +MUCI600T37 PO; +OXYC1TAB23 PO; -PERCOCET PO
[2019-01-15 11:55] LABS: BASO # 0.1 10^3/uL (0.0-0.2); BASO % 0.6 % (0.0-1.0); EOS # 0.4 10^3/uL (0.0-0.50); HEMATOCRIT 40.6 % (36.0-47.0); HEMOGLOBIN 13.7 g/dl (12.0-15.5); LYMPH # 2.3 10^3/uL (1.5-4.5); LYMPH % 23.4 % (24.0-44.0); MEAN CORPUSCULAR HEMOGLOBIN 32.2 pg (27.0-33.0); MEAN CORPUSCULAR HGB CONC 33.7 g/dl (32.0-36.5); MEAN CORPUSCULAR VOLUME 95.5 fl (80.0-96.0); MONO # 0.5 10^3/uL (0.0-0.8); MONO % 5.3 % (0.0-5.0); NEUTROPHILS # 6.4 10^3/uL (1.8-7.7); NEUTROPHILS % 66.4 % (36.0-66.0); PLATELET COUNT, AUTOMATED 235 10^3/uL (150-450); RED BLOOD COUNT 4.25 10^6/uL (4.00-5.40); WHITE BLOOD COUNT 9.7 10^3/uL (4.0-10.0)
[2019-01-15 12:16] LABS: HEMOGLOBIN A1c 5.6 %
[2019-01-15 12:22] LABS: CHOLESTEROL LEVEL 165 MG/DL (<200); FERRITIN 24 NG/ML (8-252); HDL CHOLESTEROL 39 MG/DL (>40); IRON (FE) 46 UG/DL (50-170); LDL CHOLESTEROL 103 MG/DL (<100); NON-HDL-C 126 MG/DL; PERCENT SATURATION 15.8 % (13.2-45.0); RHEUMATOID FACTOR QUANT < 10.0 IU/ML (<15.0); TOTAL IRON BINDING CAPACITY 291 UG/DL (250-450); TRIGLYCERIDES LEVEL 113 MG/DL (<150)
[2019-01-15 12:28] LABS: ESTRADIOL 54.2 PG/ML
[2019-01-22 00:11] LABS: 17 HYDROXY PROGESTERONE 20 ng/dL (.); ANA (HEP2) Negative (.); ANTI CENTROMERE ANTIBODY <0.2 AI (0.0-0.9); ANTI DS-DNA AB <1:10 titer (.); CYCLIC CITRULLINATED PEPTIDE 12 units (0-19); HLA-B27 Negative (.); SSA SJOGRENS A <0.2 AI (0.0-0.9); SSB SJOGRENS B <0.2 AI (0.0-0.9); TESTOSTERONE FREE (DIRECT) 4.3 pg/mL (0.0-4.2); VITAMIN D 1,25 DIHYDROXY 29.7 pg/mL (19.9-79.3)
== END ==
LOC: M LRY 08:47
PROVIDERS: ATTEND Physician Assistant
DX: Z13.220 Encounter for screening for lipoid disorders (principal); R76.0 Raised antibody titer; N92.6 Irregular menstruation, unspecified; E55.9 Vitamin D deficiency, unspecified; Z79.899 Other long term (current) drug therapy

== ENCOUNTER 2019-08-23 17:03 | Emergency (ER) | payer MEDICARE, OTHER ==
[~2019-08-23] VITALS: Ht 170.2 cm; Wt 117.3 kg
[2019-08-23] MEDS ORDERED: HYDR-643 PO (17:10)
--- NOTE | 2019-08-23 18:58 | REP ---
PA and lateral chest: Comparison is the left rib series including PA chest dated 08/15/2017. The lung liz are clear. The cardiac size is normal. The myron, mediastinum, and skeletal structures are unremarkable. Impression: Negative portable chest. There is no interval change. Electronically Signed by Fco Rios MD 08/23/2019 06:49 P
[2019-08-23] MEDS ORDERED: BENZONATATE 100 MG CAP PO ONE (19:00)
[2019-08-23] MEDS ORDERED: IPRATROPIUM 0.5MG/ALBUTEROL 2.5MG INH SOL UD 3ML (DUONEB)(J7620) NEB ONE ×2 (19:00)
[2019-08-23 19:22] LABS: BASO # 0.1 10^3/uL (0.0-0.2); BASO % 0.7 % (0.0-1.0); EOS # 0.3 10^3/uL (0.0-0.5); EOS % 2.3 % (0.0-3.0); HEMATOCRIT 41.4 % (36.0-47.0); HEMOGLOBIN 14.2 g/dl (12.0-15.5); LYMPH # 3.5 10^3/uL (1.5-5.0); LYMPH % 28.7 % (24.0-44.0); MEAN CORPUSCULAR HEMOGLOBIN 31.5 pg (27.0-33.0); MEAN CORPUSCULAR HGB CONC 34.3 g/dl (32.0-36.5); MEAN CORPUSCULAR VOLUME 91.8 fl (80.0-96.0); MONO # 0.7 10^3/uL (0.0-0.8); MONO % 5.8 % (0.0-5.0); NEUTROPHILS # 7.6 10^3/uL (1.5-8.5); NEUTROPHILS % 62.3 % (36.0-66.0); PLATELET COUNT, AUTOMATED 283 10^3/uL (150-450); RED BLOOD COUNT 4.51 10^6/uL (4.00-5.40); WHITE BLOOD COUNT 12.3 10^3/uL (4.0-10.0)
--- NOTE | 2019-08-23 20:57 | REPVR ---
PROCEDURE INFORMATION: Exam: CT Chest With Contrast Exam date and time: 08/23/2019 7:29 PM Age: 39 years old Clinical indication: Cough and shortness of breath; Additional info: Nodule on XR, infiltrate lingula? , Cough, SOB TECHNIQUE: Imaging protocol: Computed tomography of the chest with intravenous contrast. 3D rendering: MIP and/or 3D reconstructed images were created by the technologist. Radiation optimization: All CT scans at this facility use at least one of these dose optimization techniques: automated exposure control; mA and/or kV adjustment per patient size (includes targeted exams where dose is matched to clinical indication); or iterative reconstruction. Contrast material: ISOVUE 370; Contrast volume: 75 ml; Contrast route: IV; COMPARISON: CR Chest, 2 view PA, Lat 2019-08-23 18:25 FINDINGS: Lungs: Minimal lingular subsegmental atelectasis, no worrisome findings. Pleural space: Unremarkable. No pneumothorax. No pleural effusion. Heart: Unremarkable. No cardiomegaly. No pericardial effusion. Aorta: Unremarkable. No aortic aneurysm. Lymph nodes: Unremarkable. No enlarged lymph nodes. Bones/joints: Unremarkable. No acute fracture. Soft tissues: Unremarkable. IMPRESSION: Minimal lingular subsegmental atelectasis, no worrisome findings. Electronically signed by: Lukas Matos On 08/23/2019 20:57:03 PM
[2019-08-23] MEDS ORDERED: TESS100C PO (21:08)
[2019-08-23] MEDS ORDERED: CLEV1MIS25 XX (21:08)
[2019-08-23] MEDS ORDERED: ALBU83IN NEB (21:08)
[2019-08-23] MEDS ORDERED: PROAAER10 INH (21:08)
[2019-08-23] MEDS ORDERED: ALBUTEROL 90 MCG/ACT 8GM HFA INHALER INH ONE (21:15)
[2019-08-23 21:24] VITALS: BP 147/74
== END 2019-08-23 21:26 | disposition home or self-care (01) ==
LOC: M ED 17:03
DX: J06.9 Acute upper respiratory infection, unspecified (principal); R06.02 Shortness of breath; R05 Cough; Z87.09 Personal history of other diseases of the respiratory system; J45.909 Unspecified asthma, uncomplicated; F17.200 Nicotine dependence, unspecified, uncomplicated

== ENCOUNTER → 2020-11-03 | Outpatient (CLI) | payer MEDICARE, OTHER ==
[~2020-11-03] MED LIST changes: +ALBU83IN NEB; +CLEV1MIS25 XX; +HYDR-643 PO; +PROAAER10 INH; +TESS100C PO
[2020-11-03 10:46] LABS: BASO # 0.1 10^3/uL (0.0-0.2); BASO % 0.8 % (0.0-1.0); EOS # 0.2 10^3/uL (0.0-0.5); EOS % 2.6 % (0.0-3.0); HEMOGLOBIN 14.3 g/dl (12.0-15.5); LYMPH # 2.7 10^3/uL (1.5-5.0); LYMPH % 32.3 % (24.0-44.0); MEAN CORPUSCULAR HGB CONC 33.3 g/dl (32.0-36.5); MEAN CORPUSCULAR VOLUME 93.3 fl (80.0-96.0); MONO # 0.5 10^3/uL (0.0-0.8); MONO % 5.6 % (2.0-8.0); NEUTROPHILS # 4.9 10^3/uL (1.5-8.5); NEUTROPHILS % 58.5 % (36.0-66.0); PLATELET COUNT, AUTOMATED 302 10^3/uL (150-450); RED BLOOD COUNT 4.61 10^6/uL (4.00-5.40); WHITE BLOOD COUNT 8.4 10^3/uL (4.0-10.0)
[2020-11-03 11:13] LABS: HEMOGLOBIN A1c 5.4 %
[2020-11-03 11:28] LABS: ALBUMIN 3.9 GM/DL (3.2-5.2); ALT/SGPT 20 U/L (12-78); BILIRUBIN,TOTAL 0.3 MG/DL (0.2-1.0); BLOOD UREA NITROGEN 11 MG/DL (7-18); CALCIUM LEVEL 9.1 MG/DL (8.5-10.1); CARBON DIOXIDE LEVEL 28 MEQ/L (21-32); CHLORIDE LEVEL 107 MEQ/L (98-107); CHOLESTEROL LEVEL 170 MG/DL (<200); CHOLESTEROL RISK RATIO 3.269 (<5); CREATININE FOR GFR 0.69 MG/DL (0.55-1.30); FREE T4 0.89 NG/DL (0.76-1.46); GLOMERULAR FILTRATION RATE > 60.0 (>60); GLUCOSE, FASTING 86 MG/DL (70-100); HDL CHOLESTEROL 52 MG/DL (>40); LDL CHOLESTEROL 96 MG/DL (<100); NON-HDL-C 118 MG/DL; POTASSIUM SERUM 4.5 MEQ/L (3.5-5.1); SODIUM LEVEL 139 MEQ/L (136-145); TOTAL PROTEIN 7.1 GM/DL (6.4-8.2); TRIGLYCERIDES LEVEL 111 MG/DL (<150)
[2020-11-03 11:33] LABS: TOTAL 25(OH) VITAMIN D 16.9 NG/ML (30.0-100.0)
== END ==
LOC: M LAB 09:54
PROVIDERS: ATTEND Physician Assistant
DX: E55.9 Vitamin D deficiency, unspecified (principal); Z13.220 Encounter for screening for lipoid disorders; E28.2 Polycystic ovarian syndrome